=== PATIENT | female | born 1960 | race Caucasian/White ===

== ENCOUNTER 2019-12-26 07:55 | Outpatient (CLI) | payer BC, OTHER ==
[2019-12-26] MEDS ORDERED: OMNIPAQUE 350 MG/ML, 100ML BOTTLE ONE (13:33)
== END 2019-12-26 23:59 | disposition home or self-care (01) ==
LOC: CFH 07:55
PROVIDERS: ATTEND Internal Medicine Hematology & Oncology
DX: C15.5 Malignant neoplasm of lower third of esophagus (principal); J84.10 Pulmonary fibrosis, unspecified; K94.3 Esophagostomy complications
CPT/HCPCS: 71260; 74177; Q9967